=== PATIENT | female | born 1990 | race African-American/Black ===

== ENCOUNTER 2022-05-24 09:13 | Emergency (ER) | payer MEDICAID, OTHER ==
[~2022-05-24] VITALS: Ht 152.4 cm; Wt 64.0 kg
[~2022-05-24 09:13] MED LIST: LEVE1000 PO
[2022-05-24 09:25] VITALS: BP 124/87
== END 2022-05-24 09:49 | disposition home or self-care (01) ==
LOC: ER 09:43
DX: Z02.89 Encounter for other administrative examinations (principal); Z88.5 Allergy status to narcotic agent
CPT/HCPCS: 99283